=== PATIENT | female | born 1990 | race Two or more races ===

== ENCOUNTER 2024-10-01 04:02 | Observation (INO) | payer BC, MEDICAID, SELFPAY ==
[2024-10-01 04:16] VITALS: BP 145/92; PULSE 74; RESP 20; TEMP 36.6; O2SAT 98; BMI 31.1
[2024-10-01 04:32] LABS: Add Urine Microscopic? NO
[2024-10-01 04:43] LABS: Basophils # 0.1 10^3/uL (0.0-0.1); Basophils % 0.8 %; Eosinophils # 0.7 10^3/uL (0.0-0.8); Eosinophils % 6.4 %; Hematocrit 38.8 % (36-47); Lymphocytes % 17.8 %; Mean Corpuscular Hemoglobin 29.7 pg (27-33); Mean Platelet Volume 8.9 fL (7.4-10.4); Monocytes % 8.6 %; Neutrophils # 7.55 10^3/uL (1.8-7.7); Neutrophils % 65.8 %; Nucleated Red Blood Cells % 0 %; Platelet Count 263 10^3/cmm (157-399); Red Blood Count 4.31 10^6/uL (3.85-5.65); Red Cell Distribution Width 11.9 % (12.1-15.1); White Blood Count 11.46 10^3/uL (3.29-11.43)
[2024-10-01 04:47] LABS: Bilirubin Urine Negative (Negative); Blood Urine Negative (Negative); Glucose Urine UA Negative (Normal); Ketones Urine Negative (Negative); Leukocyte Esterase Urine Negative (Negative); Nitrate Urine Negative (Negative); Protein Urine Negative (Negative); Specific Gravity, Urine 1.015 (1.005-1.030); Urine Appearance Clear (CLEAR); Urine Color Yellow (Yellow); pH Urine 7.5 (5-7)
[2024-10-01 04:48] LABS: HCG Qualitative Urine. Negative (Negative)
--- NOTE | 2024-10-01 05:02 | USR_ITS ---
PROCEDURE INFORMATION: Exam: US Abdomen, Limited; Right Upper Quadrant Exam date and time: 10/01/2024 6:06 AM Age: 34 years old Clinical indication: Abdominal pain; Localized; Right upper quadrant (ruq); Additional info: Ruq pain TECHNIQUE: Imaging protocol: Real time ultrasound of the abdomen with image documentation. Limited exam focused on the right upper quadrant. COMPARISON: No relevant prior studies available. FINDINGS: Liver: Normal. No masses. Gallbladder: Gallstones are noted. No significant gallbladder wall thickening. Biliary ducts: Common bile duct measures 5 mm. Pancreas: Visualized pancreas is unremarkable. Right kidney: Normal. No mass. No hydronephrosis. US/US gall bladder [id number] IMPRESSION: Cholelithiasis without ultrasound evidence of cholecystitis
--- NOTE | 2024-10-01 05:08 | ED_ITS ---
Documented by User: Yakov Benavides DO 10/01/24 21:07 HPI - Abdominal Pain 2 General: Chief Complaint: Abdominal Pain Stated Complaint: ABD Pain Time Seen by Provider: 10/01/24 04:24 History of Present Illness: 34-year-old female with a history of mohini iary colic. She presents with right upper quadrant pain on and off for the last 3 days. She was seen in outside facility, laboratory was taken, no imaging was performed. She was given omeprazole which she has been taking. She has also been taking some Pepcid without any relief. She complains of pain essentially to the right upper quadrant and right flank. She does not believe she is . No fever. She has been nauseated. No vomiting. Related Data Home Medications Medication Instructions Recorded Confirmed ergocalciferol (vitamin D2) 1,250 1,250 mcg PO Q7D 10/01/24 10/01/24 mcg (50,000 unit) capsule levothyroxine 150 mcg tablet 150 mcg PO QAM 10/01/24 10/01/24 omeprazole 20 mg capsule,delayed 20 mg PO DAILY 10/01/24 10/01/24 release venlafaxine 37.5 mg 37.5 mg PO DAILY 10/01/24 10/01/24 capsule,extended release 24 hr Previous Rx's Medication Instructions Recorded sertraline 50 mg tablet 50 mg PO DAILY 30 days #30 tabs 08/17/24 Allergies Allergy/AdvReac Type Severity Reaction Status Date / Time No Known Allergies Allergy Verified 05/29/24 10:32 [facility] ED 2 PFSH: Medical History Psychiatric care Physical Exam 2 Const: GENERAL APPEARANCE: cooperative; not frail appearing HENMT: COMMON NORMALS: normocephalic, atraumatic and Normal external nose present HEAD & SCALP: normocephalic and atraumatic FACE & SINUS: normal facial exam and face symmetric NOSE: Normal external nose present Eye: COMMON NORMALS: Equal, round and reactive pupils present and EOMs intact bilaterally PUPIL: Yes Equal, round and reactive pupils present Neck/C-Spine: GENERAL: Yes trachea midline Chest: CHEST: Yes Symmetrical chest wall rise Resp: COMMON NORMALS: normal respiratory effort, No retractions, No use of accessory muscles and clear to auscultation bilaterally AUSCULTATION: clear to auscultation bilaterally Cardio: COMMON NORMALS: regular rate and regular rhythm RATE: regular rate RHYTHM: regular rhythm GI: COMMON NORMALS: Normal to inspection, nondistended, normoactive bowel sounds present and Soft to palpation PALPATION: Yes Soft to palpation, Yes Tenderness to palpation present (GI) Details: RUQ and Yes Guarding due to palpation present (GI) Extremity: COMMON NORMALS: no pedal edema Neuro: MARCE COMA SCALE: document GCS findings [place] coma scale eye opening: Spontaneous [place] coma scale verbal response: Orientated [place] coma scale motor response: Obey commands [place] coma scale total score: 15 S ENSORY EXAM: Yes extremities (intact) Psych: COMMON NORMALS: speech normal SPEECH: Yes normal speech Skin: COMMON NORMALS: no rashes or lesions noted GENERAL SKIN EXAM: no rashes or lesions noted Course 2 Vital Signs: Vital signs: Vital Signs Temperature 98.3 F 10/01/24 20:00 Pulse Rate 82 10/01/24 20:00 Respiratory Rate 18 10/01/24 20:45 Blood Pressure 115/67 10/01/24 20:00 Pulse Oximetry 93 10/01/24 20:00 Oxygen Delivery Me thod Room Air 10/01/24 20:00 MDM - Abdominal Pain Medical Decision Making White blood cell count is 11.5. Urinalysis is negative. Other laboratories pending. Gallbladder ultrasound is pending. Lab Data 10/01/24 04:35 10/01/24 04:35 Labs/Radiology: Radiology Impressions Gallbladder Ultrasound 10/01/24 05:02 IMPRESSION: Cholelithiasis without ultrasound evidence of cholecystitis Laboratory Results WBC 11.46 10^3/uL (3.29-11.43) H 10/01/24 04:35 RBC 4.31 10^6/uL (3.85-5.65) 10/01/24 04:35 Hgb 12.80 g/dL (11.27-16.99) 10/01/24 04:35 Hct 38.8 % (36-47) 10/01/24 04:35 MCV 90.0 fl (85-98) 10/01/24 04:35 MCH 29.7 pg (27-33) 10/01/24 04:35 MCHC 33.0 g/dL (30-55) 10/01/24 04:35 RDW 11.9 % (12.1-15.1) L 10/01/24 04:35 Plt Count 263 10^3/cmm (157-399) 10/01/24 04:35 MPV 8.9 fL (7.4-10.4) 10/01/24 04:35 Neut % (Auto) 65.8 % 10/01/24 04:35 Lymph % (Auto) 17.8 % 10/01/24 04:35 [place] % (Auto) 8.6 % 10/01/24 04:35 Eos % (Auto) 6.4 % 10/01/24 04:35 Baso % (Auto) 0.8 % 10/01/24 04:35 Neut # (Auto) 7.55 10^3/uL (1.8-7.7) 10/01/24 04:35 Lymph # (Auto) 2.0 10^3/uL (0.8-4.8) 10/01/24 04:35 [place] # (Auto) 1.0 10^3/uL (0.2-0.9) H 10/01/24 04:35 Eos # (Auto) 0.7 10^3/uL (0.0-0.8) 10/01/24 04:35 Baso # (Auto) 0.1 10^3/uL (0.0-0.1) 10/01/24 04:35 Nucleated RBC % (auto) 0 % 10/01/24 04:35 Nucleated RBCs # 0.0 /100WBC 10/01/24 04:35 PT 12.70 SECONDS (12.1-14.9) 10/01/24 04:35 INR 0.93 (0.8-1.2) 10/01/24 04:35 APTT 39.2 SECONDS (23.9-36.7) H 10/01/24 04:35 Sodium 139 mmol/L (136-145) 10/01/24 04:35 Potassium 3.8 mmol/L (3.5-5.1) 10/01/24 04:35 Chloride 106 mmol/L (98-107) 10/01/24 04:35 Carbon Dioxide 24 mmol/L (22-29) 10/01/24 04:35 Anion Gap 12.8 (5-19) 10/01/24 04:35 BUN 9 mg/dL (6-20) 10/01/24 04:35 Creatinine 0.7 mg/dL (0.5-0.9) 10/01/24 04:35 GFR Calculation 95.2 mL/min (90-130) 10/01/24 04:35 Glucose 101 mg/dL (65-115) 10/01/24 04:35 Calculated Osmolality 287 mOsm/kg (285-295) 10/01/24 04:35 Calcium 8.9 mg/dL (8.5-10.5) 10/01/24 04:35 Total Bilirubin 0.2 mg/dL (0.15-1.2) 10/01/24 04:35 AST 76 U/L (0-32) H 10/01/24 04:35 ALT 265 U/L (0-33) H 10/01/24 04:35 Alkaline Phosphatase 122 U/L (35-105) H 10/01/24 04:35 C-Reactive Protein 64.6 mg/L (0.0-4.9) H 10/01/24 04:35 NT-Pro-B Natriuret Pep 40 pg/mL (0-125) 10/01/24 04:35 Total Protein 6.6 g/dL (6.6-8.7) 10/01/24 04:35 Albumin 3.7 g/dL (3.5-5.2) 10/01/24 04:35 Globulin 2.9 g/dL (1.3-4.6) 10/01/24 04:35 Lipase 53 U/L (13-60) 10/01/24 04:35 HCG, Qual Negative (Negative) 10/01/24 04:25 Urine Color Yellow (Yellow) 10/01/24 04:25 Urine Appearance Clear (CLEAR) 10/01/24 04:25 Urine pH 7.5 (5-7) 10/01/24 04:25 Ur Specific [place] 1.015 (1.005-1.030) 10/01/24 04:25 Urine Protein Negative (Negative) 10/01/24 04:25 Urine Glucose (UA) Negative (Normal) 10/01/24 04:25 Urine Ketones Negative (Negative) 10/01/24 04:25 Urine Blood Negative (Negative) 10/01/24 04:25 Urine Nitrate Negative (Negative) 10/01/24 04:25 Urine Bilirubin Negative (Negative) 10/01/24 04:25 Urine Urobilinogen 1.0 mg/dL (Negative) 10/01/24 04:25 Ur Leukocyte Esterase Negative (Negative) 10/01/24 04:25 Amorphous Sediment Not Reportable 10/01/24 04:25 Discharge Plan Discharge Patient Disposition: Admitted As Inpatient Admit Provider: Paul Pryor Clinical Impression: Acute calculous cholecystitis Condition: Stable Sign Out Sign Out Data: Patient Sign Out occurred on 10/01/24 at 06:10. Patient's care was discussed, and care was transferred from Yakov Benavides DO to Karsten Linn DO. Coding Level of Care Code ED Taxicab Driver for Chg Fwd Documented by User: Karsten Linn DO 10/01/24 06:28 HPI - Abdominal Pain 2 General: Chief Complaint: Abdominal Pain Stated Complaint: ABD Pain Time Seen by Provider: 10/01/24 04:24 Related Data Home Medications Medication Instructions Recorded Confirmed ergocalciferol (vitamin D2) 1,250 1,250 mcg PO Q7D 10/01/24 10/01/24 mcg (50,000 unit) capsule levothyroxine 150 mcg tablet 150 mcg PO QAM 10/01/24 10/01/24 omeprazole 20 mg capsule,delayed 20 mg PO DAILY 10/01/24 10/01/24 release venlafaxine 37.5 mg 37.5 mg PO DAILY 10/01/24 10/01/24 capsule,extended release 24 hr Previous Rx's Medication Instructions Recorded sertraline 50 mg tablet 50 mg PO DAILY 30 days #30 tabs 08/17/24 Allergies Allergy/AdvReac Type Severity Reaction Status Date / Time No Known Allergies Allergy Verified 05/29/24 10:32 PFSH ED 2 PFSH: Medical History Psychiatric care Physical Exam 2 Neuro: MARCE COMA SCALE: document GCS findings [place] coma scale total score: 15 Course 2 Vital Signs: Vital signs: Vital Signs Temperature 98.3 F 10/01/24 20:00 Pulse Rate 82 10/01/24 20:00 Respiratory Rate 18 10/01/24 20:45 Blood Pressure 115/67 10/01/24 20:00 Pulse Oximetry 93 10/01/24 20:00 Oxygen Delivery Me thod Room Air 10/01/24 20:00 MDM - Abdominal Pain Medical Decision Making White blood cell count is 11.5. Urinalysis is negative. Other laboratories pending. Gallbladder ultrasound is pending. Care assumed at change of shift. History of ultrasound shows gallbladder stones normal CBD. No hydrops no thickening of the wall patient does have mild leukocytosis and transaminitis. Lipase is normal T. bili normal. Discussed with Dr. Pryor, admit for acute cholecystitis, cholelithiasis. N.p.o. will give her a liter of fluids morphine and Zofran as needed continue Zosyn every 8 h. Lab Data I reviewed the patient's lab results. 10/01/24 04:35 10/01/24 04:35 Labs/Radiology: Radiology Impressions Gallbladder Ultrasound 10/01/24 05:02 IMPRESSION: Cholelithiasis without ultrasound evidence of cholecystitis Laboratory Results WBC 11.46 10^3/uL (3.29-11.43) H 10/01/24 04:35 RBC 4.31 10^6/uL (3.85-5.65) 10/01/24 04:35 Hgb 12.80 g/dL (11.27-16.99) 10/01/24 04:35 Hct 38.8 % (36-47) 10/01/24 04:35 MCV 90.0 fl (85-98) 10/01/24 04:35 MCH 29.7 pg (27-33) 10/01/24 04:35 MCHC 33.0 g/dL (30-55) 10/01/24 04:35 RDW 11.9 % (12.1-15.1) L 10/01/24 04:35 Plt Count 263 10^3/cmm (157-399) 10/01/24 04:35 MPV 8.9 fL (7.4-10.4) 10/01/24 04:35 Neut % (Auto) 65.8 % 10/01/24 04:35 Lymph % (Auto) 17.8 % 10/01/24 04:35 [place] % (Auto) 8.6 % 10/01/24 04:35 Eos % (Auto) 6.4 % 10/01/24 04:35 Baso % (Auto) 0.8 % 10/01/24 04:35 Neut # (Auto) 7.55 10^3/uL (1.8-7.7) 10/01/24 04:35 Lymph # (Auto) 2.0 10^3/uL (0.8-4.8) 10/01/24 04:35 [place] # (Auto) 1.0 10^3/uL (0.2-0.9) H 10/01/24 04:35 Eos # (Auto) 0.7 10^3/uL (0.0-0.8) 10/01/24 04:35 Baso # (Auto) 0.1 10^3/uL (0.0-0.1) 10/01/24 04:35 Nucleated RBC % (auto) 0 % 10/01/24 04:35 Nucleated RBCs # 0.0 /100WBC 10/01/24 04:35 PT 12.70 SECONDS (12.1-14.9) 10/01/24 04:35 INR 0.93 (0.8-1.2) 10/01/24 04:35 APTT 39.2 SECONDS (23.9-36.7) H 10/01/24 04:35 Sodium 139 mmol/L (136-145) 10/01/24 04:35 Potassium 3.8 mmol/L (3.5-5.1) 10/01/24 04:35 Chloride 106 mmol/L (98-107) 10/01/24 04:35 Carbon Dioxide 24 mmol/L (22-29) 10/01/24 04:35 Anion Gap 12.8 (5-19) 10/01/24 04:35 BUN 9 mg/dL (6-20) 10/01/24 04:35 Creatinine 0.7 mg/dL (0.5-0.9) 10/01/24 04:35 GFR Calculation 95.2 mL/min (90-130) 10/01/24 04:35 Glucose 101 mg/dL (65-115) 10/01/24 04:35 Calculated Osmolality 287 mOsm/kg (285-295) 10/01/24 04:35 Calcium 8.9 mg/dL (8.5-10.5) 10/01/24 04:35 Total Bilirubin 0.2 mg/dL (0.15-1.2) 10/01/24 04:35 AST 76 U/L (0-32) H 10/01/24 04:35 ALT 265 U/L (0-33) H 10/01/24 04:35 Alkaline Phosphatase 122 U/L (35-105) H 10/01/24 04:35 C-Reactive Protein 64.6 mg/L (0.0-4.9) H 10/01/24 04:35 NT-Pro-B Natriuret Pep 40 pg/mL (0-125) 10/01/24 04:35 Total Protein 6.6 g/dL (6.6-8.7) 10/01/24 04:35 Albumin 3.7 g/dL (3.5-5.2) 10/01/24 04:35 Globulin 2.9 g/dL (1.3-4.6) 10/01/24 04:35 Lipase 53 U/L (13-60) 10/01/24 04:35 HCG, Qual Negative (Negative) 10/01/24 04:25 Urine Color Yellow (Yellow) 10/01/24 04:25 Urine Appearance Clear (CLEAR) 10/01/24 04:25 Urine pH 7.5 (5-7) 10/01/24 04:25 Ur Specific [place] 1.015 (1.005-1.030) 10/01/24 04:25 Urine Protein Negative (Negative) 10/01/24 04:25 Urine Glucose (UA) Negative (Normal) 10/01/24 04:25 Urine Ketones Negative (Negative) 10/01/24 04:25 Urine Blood Negative (Negative) 10/01/24 04:25 Urine Nitrate Negative (Negative) 10/01/24 04:25 Urine Bilirubin Negative (Negative) 10/01/24 04:25 Urine Urobilinogen 1.0 mg/dL (Negative) 10/01/24 04:25 Ur Leukocyte Esterase Negative (Negative) 10/01/24 04:25 Amorphous Sediment Not Reportable 10/01/24 04:25 All radiology interpretation(s) finalized by discharge Discharge Plan Discharge Patient Disposition: Admitted As Inpatient Admit Provider: Paul Pryor Clinical Impression: Acute calculous cholecystitis Condition: Stable Sign Out Sign Out Data: Patient Sign Out occurred on 10/01/24 at 06:10. Patient's care was discussed, and care was transferred from Yakov Benavides DO to Karsten Linn DO. Coding Level of Care Code ED Taxicab Driver for Sundar Haywood
[2024-10-01 05:14] LABS: Alanine Aminotransferase 265 U/L (0-33); Albumin Level 3.7 g/dL (3.5-5.2); Alkaline Phosphatase 122 U/L (35-105); Anion Gap 12.8 (5-19); Aspartate Amino Transferase 76 U/L (0-32); Blood Urea Nitrogen 9 mg/dL (6-20); C Reactive Protein 64.6 mg/L (0.0-4.9); Calcium 8.9 mg/dL (8.5-10.5); Carbon Dioxide 24 mmol/L (22-29); Chloride 106 mmol/L (98-107); Creatinine Clr Calc Pharmacy 107.8515; Globulin 2.9 g/dL (1.3-4.6); Glomerular Filtration Rate 95.2 mL/min (90-130); Glucose 101 mg/dL (65-115); Lipase 53 U/L (13-60); NT Pro B Type Natriuretic Pept 40 pg/mL (0-125); Osmolality Calculated 287 mOsm/kg (285-295); Potassium 3.8 mmol/L (3.5-5.1); Sodium 139 mmol/L (136-145); Total Bilirubin 0.2 mg/dL (0.15-1.2); Total Protein 6.6 g/dL (6.6-8.7)
[2024-10-01 05:22] LABS: Charge for UA Resulting for Rev
[2024-10-01] MEDS: ondansetron 2 mg/ML SDV 2 mL 4 MG IVP ×2 (05:24→20:45)
[2024-10-01] MEDS: morphine 4 mg/mL SDV 1 mL IVP (05:24)
[2024-10-01] MEDS: ketorolac 30 mg/mL INJ IVP (05:24)
[2024-10-01 05:27] LABS: INR 0.93 (0.8-1.2)
[2024-10-01 05:28] LABS: Partial Thromboplastin Time 39.2 SECONDS (23.9-36.7)
[2024-10-01] MEDS: piperacillin-tazobactam 3.375 GM in sodium chloride 0.9% (plus) 50 ML IV ×3 (06:25→22:03)
[2024-10-01 07:23] VITALS: BP 152/91; PULSE 72; O2SAT 98
[2024-10-01 09:02] VITALS: BMI 30.7
[2024-10-01] MEDS: sodium chloride 0.9% 1,000 ML 999 ML IV (10:02)
--- NOTE | 2024-10-01 11:06 | P.HP_ITS ---
Providers/Chief Complaint 2 Admitting Physician: Paul Pryor DO Chief Complaint: ABD Pain History of Present Illness Kathleen Mendez is a 34 year old female who presented to the hospital with a 3-day history of severe right upper quadrant abdominal pain rating to her back nausea and emesis. Palpation and eating make her pain worse. Nothing seems to make her pain better. Workup in the ER showed leukocytosis elevated LFTs and cholelithiasis with stones in the gallbladder neck. She denies any hematochezia and/or melena Review of Systems 2 General: Reports: 10 or more systems reviewed and unremarkable except in HPI and below Medications/Allergies Home Medications Medication Instructions Recorded Confirmed Last Taken Type sertraline 50 mg tablet 50 mg PO DAILY 30 days #30 tabs 08/17/24 10/01/24 Unknown Rx ergocalciferol (vitamin D2) 1,250 1,250 mcg PO Q7D 10/01/24 10/01/24 Unknown History mcg (50,000 unit) capsule levothyroxine 150 mcg tablet 150 mcg PO QAM 10/01/24 10/01/24 Unknown History omeprazole 20 mg capsule,delayed 20 mg PO DAILY 10/01/24 10/01/24 Unknown History release venlafaxine 37.5 mg 37.5 mg PO DAILY 10/01/24 10/01/24 Unknown History capsule,extended release 24 hr Allergies Allergy/AdvReac Type Severity Reaction Status Date / Time No Known Allergies Allergy Verified 05/29/24 10:32 PFSH Acute 2 PFSH: Medical History Psychiatric care Vitals/I&O/Wt Last Vital Signs Temp 97.9 F 10/01/24 04:16 Pulse 72 10/01/24 07:23 Resp 20 H 10/01/24 04:16 BP 152/91 10/01/24 07:23 Pulse Ox 98 10/01/24 07:23 O2 Del Method Room Air 10/01/24 04:16 09/30/24 10/01/24 10/01/24 22:59 06:59 14:59 Intake Total 50 / 50 Balance 50 / 50 Weight last 48 hrs Weight 167 lb 14.4 oz Weight 170 lb Physical Exam 2 Narrative: General : Patient is well developed , no acute distress, oriented x3 Head : Normal cephalic, a-traumatic. Ears : Pinnae and external canal are normal. Hearing is normal. Eyes : PERRLA, Sclera and injection are normal. No conjunctival discharge. Nose : Mucous membranes are without erythema. Throat : buccal mucosa is normal, gums are without significant recession or hypertrophy. Lungs : Equal chest rise bilaterally, no use of accessory muscles, trachea is midline. Cor : Rate and rhythm are normal. Abdomen : Soft, ND, tender right upper quadrant, negative Pina's, no g/r/m Extremities : No edema, no cyanosis or clubbing, dorsalis pedis pulses are present bilaterally, non-tender to palpation of calves. Upper extremities are normal bilaterally. Back : non-tender to palpation, no CVA tenderness. Neuro : CN II - XII intact, Upper and lower extremities have equal and full strength Data 10/01/24 04:35 10/01/24 04:35 A&P Assessment and plan (1) Acute calculous cholecystitis: Plan Low-fat diet N.p.o. after midnight Pain control IV antibiotics Tomorrow for laparoscopic cholecystectomy The risks and benefits of the procedure, including but not limited to, bleeding, infection, scar, numbness, pain, damage to surrounding structures, damage to common bile duct requiring additional surgery, conversion to an open procedure, were explained to the patient. He is understanding of the risks and wishes to proceed. Attestations 2 Medical Necessity Statement*: Patient requires 1 more night in the hospital for IV antibiotics and laparoscopic cholecystectomy in the morning Coding Level of Care Code 42203 Diagnoses Acute calculous cholecystitis K80.00
[2024-10-01] MEDS: HYDROcodone-acetaminophen 7.5-325 mg Tablet 1 TAB PO ×2 (11:44→16:25)
[2024-10-01 12:00] VITALS: BP 115/75; PULSE 88; RESP 19; TEMP 36.9; O2SAT 97
[2024-10-01 16:00] VITALS: BP 112/70; PULSE 81; RESP 16; TEMP 37; O2SAT 96
[2024-10-01 20:00] VITALS: BP 115/67; PULSE 82; RESP 16; TEMP 36.8; O2SAT 93
[2024-10-01 20:45] VITALS: RESP 18
[2024-10-01] MEDS: HYDROmorphone 1 mg/mL INJ 1 mL 0.5 MG IVP (20:45)
[2024-10-01 20:57] LABS: Glucose Point of Care 125 mg/dL (70-110)
[2024-10-02] VITALS (19 sets, daily range): BP systolic 99–123; BP diastolic 57–85; PULSE 64–83; RESP 15–22; TEMP 36.4–37.5; O2SAT 90–97
[2024-10-02] MEDS: HYDROcodone-acetaminophen 7.5-325 mg Tablet 1 TAB PO ×3 (02:14→15:50)
[2024-10-02] MEDS: HYDROmorphone 1 mg/mL INJ 1 mL 0.5 MG IVP (03:09)
[2024-10-02] MEDS: ondansetron 2 mg/ML SDV 2 mL 4 MG IVP (03:14)
[2024-10-02 03:37] LABS: Basophils # 0.1 10^3/uL (0.0-0.1); Basophils % 0.5 %; Eosinophils # 0.2 10^3/uL (0.0-0.8); Eosinophils % 2.2 %; Hematocrit 36.1 % (36-47); Lymphocytes # 1.4 10^3/uL (0.8-4.8); Lymphocytes % 13.5 %; Mean Corpuscular Hemoglobin 29.8 pg (27-33); Mean Corpuscular Volume 90.3 fl (85-98); Mean Platelet Volume 9.1 fL (7.4-10.4); Monocytes # 0.7 10^3/uL (0.2-0.9); Monocytes % 6.8 %; Neutrophils % 76.3 %; Nucleated Red Blood Cells % 0 %; Platelet Count 253 10^3/cmm (157-399); Red Cell Distribution Width 11.9 % (12.1-15.1); White Blood Count 10.21 10^3/uL (3.29-11.43)
[2024-10-02 04:05] LABS: Alanine Aminotransferase 479 U/L (0-33); Albumin Level 3.4 g/dL (3.5-5.2); Alkaline Phosphatase 263 U/L (35-105); Anion Gap 13.1 (5-19); Aspartate Amino Transferase 234 U/L (0-32); Blood Urea Nitrogen 10 mg/dL (6-20); Calcium 8.9 mg/dL (8.5-10.5); Carbon Dioxide 24 mmol/L (22-29); Chloride 100 mmol/L (98-107); Creatinine Clr Calc Pharmacy 150.0471; Glomerular Filtration Rate 140.4 mL/min (90-130); Glucose 135 mg/dL (65-115); Osmolality Calculated 277 mOsm/kg (285-295); Potassium 4.1 mmol/L (3.5-5.1); Sodium 133 mmol/L (136-145); Total Protein 6.4 g/dL (6.6-8.7)
[2024-10-02] MEDS: piperacillin-tazobactam 3.375 GM in sodium chloride 0.9% (plus) 50 ML IV (05:33)
--- NOTE | 2024-10-02 10:03 | PC.CHAP ---
Pastoral Care Encounter/Spiritual Assessment Type of Contact [] Declined jig and fixture maker visit [] Patient/Family/Request visit [] Outpatient visit [] Follow-up visit [] Physician referral [] Code/Alert [x] Routine visit [] Staff referral [] Actively dying [x] Patient sleeping [] Family support [] [] Out of room [] Palliative care [] [] Receiving care in room [] Pre-surgical visit [] Trauma [] Long length of stay [] ICU visit [] Other: Relational/Emotional Strength [] Patient feels connected with others/family/visitors/staff [] Distress [] Loneliness/isolation [] Abandonment Spirituality of Patient [] Person of Janice [] Attends Scientologist of their Janice [] Believes in Prayer [] Reads Bible or Adventism materials [] There are Spiritual issues to be addressed Artificial Flowers Starcher Interventions [] Prayer [] Active listening [] Non-anxious presence [] Spiritual/emotional support [] Crisis/trauma care [] Spiritual counseling [] Bereavement support [] Provided bereavement packet [] Provided Bible/devotional materials [] Provided toy/stuffed animal, coloring book to patient or family member [] Provided Communion [] Anointing/[place] [] Salvation [] Completed spiritual assessment [] Other: Impact on Illness or Injury [] Angry [] Fearful [] Anxious [] Often cries [] Exhaustion [] Unable to work [] Unable to attend orthodox [] Unable to walk/stand [] Unable to read [] Unable to drive [] Unable to eat/drink [] Unable to sleep [] Unable to be with family [] Patient intubated [] Other: Summary Time spent with patient
[2024-10-02] MEDS: sodium chloride 0.9% 1,000 ML 30 ML IV (11:42)
--- NOTE | 2024-10-02 12:06 | P.ANESASSM_ITS ---
Pre-Anesthetic Assessment Height/Weight: Height 5 ft 2 in Weight 168 lb 4.8 oz Temp Pulse Resp BP Pulse Ox O2 Del Method 97.6 F 75 16 123/85 97 Room Air 10/02/24 11:16 10/02/24 11:16 10/02/24 11:16 10/02/24 11:16 10/02/24 11:16 10/02/24 11:16 Preop Diagnosis: Acute cholecystitis Operation Date: 10/02/24 12:00 Proposed Procedures p Laparoscopic Cholecystectomy(Bilateral) - Paul Pryor, DO Was Beta Zoie taken within 24 hours: N/A Was Clonidine taken within 24 hours: N/A Last intake: Intake Last Liquid Date 10/01/24 Last Liquid Time 23:30 Last Solid Date 10/01/24 Last Solid Time 18:00 Social No alcohol and No tobacco Exam alert, oriented x 3, clear to auscultation bilaterally and regular rate & rhythm Airway Submandibular: within normal limits Cervical ROM: within normal limits Mallampati: Class II Dentition: full Anesthetic Plan ASA status: 2 Anesthesia: General Other: No prior issues with anesthesia NPO since yesterday History of GERD on omeprazole Hypothyroidism on Synthroid Denies any cardiac or pulmonary issues METs greater than 4 Labs reviewed and acceptable for procedure. NA 133 Transaminitis noted, most likely secondary to acute cholecystitis Plan for GETA Medications/Allergies Home Medications Medication Instructions Recorded Confirmed Last Taken Type sertraline 50 mg tablet 50 mg PO DAILY 30 days #30 tabs 08/17/24 10/01/24 Unknown Rx ergocalciferol (vitamin D2) 1,250 1,250 mcg PO Q7D 10/01/24 10/01/24 Unknown History mcg (50,000 unit) capsule levothyroxine 150 mcg tablet 150 mcg PO QAM 10/01/24 10/01/24 Unknown History omeprazole 20 mg capsule,delayed 20 mg PO DAILY 10/01/24 10/01/24 Unknown History release venlafaxine 37.5 mg 37.5 mg PO DAILY 10/01/24 10/01/24 Unknown History capsule,extended release 24 hr Allergies Allergy/AdvReac Type Severity Reaction Status Date / Time No Known Allergies Allergy Verified 05/29/24 10:32 Current Medications Generic Name Dose Route Start Last Admin Trade Name Freq PRN Reason Stop Dose Admin Hydrocodone Bitart/Acetaminophen 1 tab 10/01/24 11:03 10/02/24 09:45 Hydrocodone-Acetaminophen 7.5-325 Mg Tablet PO 1 tab Q4H PRN Administration MODERATE PAIN Hydromorphone HCl 0.5 mg 10/01/24 11:03 10/02/24 03:09 Hydromorphone 1 Mg/Ml Inj 1 Ml IVP 0.5 mg Q3H PRN Administration SEVERE PAIN Piperacillin Sod/Tazobactam 50 mls @ 12.5 mls/hr 10/01/24 13:30 10/02/24 09:50 Sod 3.375 gm/ Sodium Chloride IV Infused Q8H LILIA Infusion Protocol Sodium Chloride 1,000 mls @ 30 mls/hr 10/02/24 11:30 10/02/24 11:42 Sodium Chloride 0.9% IV 10/03/24 11:29 30 mls/hr .Q24H LILIA Administration Ondansetron HCl 4 mg 10/01/24 08:39 10/02/24 03:14 Ondansetron 2 Mg/Ml Sdv 2 Ml IVP 4 mg Q6H PRN Administration NAUSEA AND VOMITING PFSH Anesthesia Medical History Psychiatric care Data Anesthesia 10/02/24 02:43 10/02/24 02:43 Short CBC 10/01/24 10/02/24 Range/Units 04:35 02:43 WBC 11.46 H 10.21 (3.29-11.43) 10^3/uL Hgb 12.80 11.90 (11.27-16.99) g/dL Hct 38.8 36.1 (36-47) % MCV 90.0 90.3 (85-98) fl Plt Count 263 253 (157-399) 10^3/cmm Neut % (Auto) 65.8 76.3 % Neut # (Auto) 7.55 7.80 H (1.8-7.7) 10^3/uL BMP 10/01/24 10/02/24 04:35 02:43 Sodium 139 133 L Potassium 3.8 4.1 Chloride 106 100 Carbon Dioxide 24 24 BUN 9 10 Creatinine 0.7 0.5 Glucose 101 135 H Calcium 8.9 8.9 Cardiac Enzymes 10/01/24 Range/Units 04:35 NT-Pro-B Natriuret Pep 40 (0-125) pg/mL Liver Function 10/01/24 10/02/24 Range/Units 04:35 02:43 Total Bilirubin 0.2 2.0 H (0.15-1.2) mg/dL AST 76 H 234 H (0-32) U/L ALT 265 H 479 H (0-33) U/L Alkaline Phosphatase 122 H 263 H (35-105) U/L Albumin 3.7 3.4 L (3.5-5.2) g/dL Urine 10/01/24 Range/Units 04:25 Urine Color Yellow (Yellow) Urine Appearance Clear (CLEAR) Urine pH 7.5 (5-7) Ur Specific [place] 1.015 (1.005-1.030) Urine Protein Negative (Negative) Urine Glucose (UA) Negative (Normal) Urine Ketones Negative (Negative) Urine Nitrate Negative (Negative) Urine Bilirubin Negative (Negative) Ur Leukocyte Esterase Negative (Negative) Coags 10/01/24 04:35 PT 12.70 INR 0.93 APTT 39.2 H C-Reactive Protein 64.6 H Cardiac Studies: 2 No Data to Display
--- NOTE | 2024-10-02 12:13 | PM.PN ---
Vitals/I&O/Wt Last Vital Signs Temp 97.6 F 10/02/24 11:16 Pulse 75 10/02/24 11:16 Resp 16 10/02/24 11:16 BP 123/85 10/02/24 11:16 Pulse Ox 97 10/02/24 11:16 O2 Del Method Room Air 10/02/24 11:16 10/01/24 10/02/24 10/02/24 22:59 06:59 14:59 Intake Total 1050 / 1340 50 / 1390 50 / 50 Balance 1050 / 1340 50 / 1390 50 / 50 Weight last 48 hrs Weight 168 lb 4.8 oz Weight 167 lb 14.4 oz Weight 170 lb Data 10/02/24 02:43 10/02/24 02:43 A&P Assessment and plan (1) Acute calculous cholecystitis: Plan laparoscopic cholecystectomy The risks and benefits of the procedure, including but not limited to, bleeding, infection, scar, numbness, pain, damage to surrounding structures, damage to common bile duct requiring additional surgery, conversion to an open procedure, were explained to the patient. He is understanding of the risks and wishes to proceed. Attestations Medical Necessity Statement*: discharge after procedure Coding Level of Care Code Acute Code for [facility] Fwd Diagnoses Acute calculous cholecystitis K80.00
[2024-10-02] MEDS: lidocaine-epi 2% PF 1:200,000 20 mL SDV XX (12:36)
--- NOTE | 2024-10-02 13:11 | P.OP_ITS ---
Operative Report Date of procedure: October 02, 2024 Surgeon: Paul Pryor DO Brief History: This very pleasant 34-year-old female presented to hospital with abdominal pain. She was diagnosed with acute calculous cholecystitis. Cholecystectomy was indicated. The risks and benefits were explained and documented. Procedure: Preoperative diagnosis: Acute calculous cholecystitis Postoperative diagnosis: Same Procedure performed: Laparoscopic cholecystectomy Surgeon: Dr. Paul Pryor DO Estimated blood loss: 5 mL Specimens: Gallbladder to pathology Complications: None apparent Description of procedure: Patient was wheeled into the operative room and placed on the OR table in a supine position. Abdomen was inspected prepped and draped in usual sterile fashion. Time-out was performed and all present were in agreement. A 15 blade scalp was used to make a stab incision in the left upper quadrant and intra- abdominal insufflation was achieved using a Veress needle. After localizing the tissue incisions were made and a 5 millimeter trocar was placed into the umbilicus as well as 2 in the right upper quadrant. A 12 millimeter trocar was placed in the epigastrium. The gallbladder was significantly inflamed with omental adhesions. Gallbladder was grasped and elevated. The triangle of Calot was carefully dissected using blunt dissection and electrocautery until the triangle of [place]ot clearly identified. The cystic duct was clipped proximally and double clipped distally. The duct was then ligated proximally. The cystic artery was doubly clipped and ligated. The gallbladder was then removed from the liver bed using electrocautery. The gallbladder was removed from the abdomen using an Endo-Catch bag through the epigastric incision. The liver bed was inspected and no bleeding was seen. The abdomen was irrigated and suctioned. All ports removed. Skin was washed and dried. Incisions were closed with 4-0 Monocryl in a subcuticular interrupted fashion. Skin glue was applied. Patient tolerated the procedure well.
[2024-10-02] MEDS: fentaNYL 50 mcg/mL INJ 2mL IVP (13:34)
--- NOTE | 2024-10-02 13:58 | ANE.PACU2 ---
Inpatient post-anesthesia follow up: Airway intact: Yes Vital signs: Temperature 98.0 F Pulse Rate 83 Respiratory Rate 16 Blood Pressure 112/64 Pulse Oximetry 92 Oxygen Delivery Me thod Room Air Oxygen Flow Rate 2 Fraction of Inspir ed Oxygen Hydration adequate: Yes Nausea and vomiting: No Pain level: 1 Mental status: Baseline
--- NOTE | 2024-10-02 14:58 | P.DS_ITS ---
Discharge Providers Date of Admission: 10/01/24 06:23 Date of Discharge: October 02, 2024 Attending Provider at Admission: Paul Pryor DO Attending Provider at Discharge: Paul Pryor DO Diagnoses at Discharge Discharge Diagnosis (1) Acute calculous cholecystitis: Status: Acute Reason for Visit Reason for Visit: ABD Pain Hospital Course Hospital Course This is a very pleasant 34-year-old female came to the hospital with abdominal pain. She was diagnosed with acute calculus cholecystitis. She underwent laparoscopic cholecystectomy and was discharged home in good condition Physical Exam Narrative: General : Patient is well developed , no acute distress, oriented x3 Head : Normal cephalic, a-traumatic. Ears : Pinnae and external canal are normal. Hearing is normal. Eyes : PERRLA, Sclera and injection are normal. No conjunctival discharge. Nose : Mucous membranes are without erythema. Throat : buccal mucosa is normal, gums are without significant recession or hypertrophy. Lungs : Equal chest rise bilaterally, no use of accessory muscles, trachea is midline. Cor : Rate and rhythm are normal. Abdomen : Soft, ND, appropriately tender, no g/r/m Extremities : No edema, no cyanosis or clubbing, dorsalis pedis pulses are present bilaterally, non-tender to palpation of calves. Upper extremities are normal bilaterally. Back : non-tender to palpation, no CVA tenderness. Neuro : CN II - XII intact, Upper and lower extremities have equal and full strength Discharge Data Studies Completed and Pending Completed Studies During Hospitalization Category Date Time Status US gall bladder 71030 Stat Ultrasound 10/01/24 05:02 Completed Pending at discharge Category Date Time Status Pathology: Surgical [PTH] Routine Pth 10/02/24 12:54 Received Radiology Impressions Gallbladder Ultrasound 10/01/24 05:02 IMPRESSION: Cholelithiasis without ultrasound evidence of cholecystitis Laboratory Results WBC 10.21 10^3/uL (3.29-11.43) 10/02/24 02:43 RBC 4.00 10^6/uL (3.85-5.65) 10/02/24 02:43 Hgb 11.90 g/dL (11.27-16.99) 10/02/24 02:43 Hct 36.1 % (36-47) 10/02/24 02:43 MCV 90.3 fl (85-98) 10/02/24 02:43 MCH 29.8 pg (27-33) 10/02/24 02:43 MCHC 33.0 g/dL (30-55) 10/02/24 02:43 RDW 11.9 % (12.1-15.1) L 10/02/24 02:43 Plt Count 253 10^3/cmm (157-399) 10/02/24 02:43 MPV 9.1 fL (7.4-10.4) 10/02/24 02:43 Neut % (Auto) 76.3 % 10/02/24 02:43 Lymph % (Auto) 13.5 % 10/02/24 02:43 [place] % (Auto) 6.8 % 10/02/24 02:43 Eos % (Auto) 2.2 % 10/02/24 02:43 Baso % (Auto) 0.5 % 10/02/24 02:43 Neut # (Auto) 7.80 10^3/uL (1.8-7.7) H 10/02/24 02:43 Lymph # (Auto) 1.4 10^3/uL (0.8-4.8) 10/02/24 02:43 [place] # (Auto) 0.7 10^3/uL (0.2-0.9) 10/02/24 02:43 Eos # (Auto) 0.2 10^3/uL (0.0-0.8) 10/02/24 02:43 Baso # (Auto) 0.1 10^3/uL (0.0-0.1) 10/02/24 02:43 Nucleated RBC % (auto) 0 % 10/02/24 02:43 Nucleated RBCs # 0.0 /100WBC 10/02/24 02:43 PT 12.70 SECONDS (12.1-14.9) 10/01/24 04:35 INR 0.93 (0.8-1.2) 10/01/24 04:35 APTT 39.2 SECONDS (23.9-36.7) H 10/01/24 04:35 Sodium 133 mmol/L (136-145) L 10/02/24 02:43 Potassium 4.1 mmol/L (3.5-5.1) 10/02/24 02:43 Chloride 100 mmol/L (98-107) 10/02/24 02:43 Carbon Dioxide 24 mmol/L (22-29) 10/02/24 02:43 Anion Gap 13.1 (5-19) 10/02/24 02:43 BUN 10 mg/dL (6-20) 10/02/24 02:43 Creatinine 0.5 mg/dL (0.5-0.9) 10/02/24 02:43 GFR Calculation 140.4 mL/min (90-130) H 10/02/24 02:43 Glucose 135 mg/dL (65-115) H 10/02/24 02:43 POC Glucose 125 mg/dL (70-110) H 10/01/24 20:54 Calculated Osmolality 277 mOsm/kg (285-295) L 10/02/24 02:43 Calcium 8.9 mg/dL (8.5-10.5) 10/02/24 02:43 Total Bilirubin 2.0 mg/dL (0.15-1.2) H 10/02/24 02:43 AST 234 U/L (0-32) H 10/02/24 02:43 ALT 479 U/L (0-33) H 10/02/24 02:43 Alkaline Phosphatase 263 U/L (35-105) H 10/02/24 02:43 C-Reactive Protein 64.6 mg/L (0.0-4.9) H 10/01/24 04:35 NT-Pro-B Natriuret Pep 40 pg/mL (0-125) 10/01/24 04:35 Total Protein 6.4 g/dL (6.6-8.7) L 10/02/24 02:43 Albumin 3.4 g/dL (3.5-5.2) L 10/02/24 02:43 Globulin 3.0 g/dL (1.3-4.6) 10/02/24 02:43 Lipase 53 U/L (13-60) 10/01/24 04:35 HCG, Qual Negative (Negative) 10/01/24 04:25 Urine Color Yellow (Yellow) 10/01/24 04:25 Urine Appearance Clear (CLEAR) 10/01/24 04:25 Urine pH 7.5 (5-7) 10/01/24 04:25 Ur Specific [place] 1.015 (1.005-1.030) 10/01/24 04:25 Urine Protein Negative (Negative) 10/01/24 04:25 Urine Glucose (UA) Negative (Normal) 10/01/24 04:25 Urine Ketones Negative (Negative) 10/01/24 04:25 Urine Blood Negative (Negative) 10/01/24 04:25 Urine Nitrate Negative (Negative) 10/01/24 04:25 Urine Bilirubin Negative (Negative) 10/01/24 04:25 Urine Urobilinogen 1.0 mg/dL (Negative) 10/01/24 04:25 Ur Leukocyte Esterase Negative (Negative) 10/01/24 04:25 Amorphous Sediment Not Reportable 10/01/24 04:25 Procedures Performed Laparoscopic cholecystectomy Vitals Last Vital Signs Temp 98.1 F 10/02/24 13:53 Pulse 71 10/02/24 13:53 Resp 18 10/02/24 13:53 BP 112/69 10/02/24 13:53 Pulse Ox 94 10/02/24 13:53 O2 Del Method Room Air 10/02/24 13:53 O2 Flow Rate 2 10/02/24 13:43 Discharge Plan Discharge Patient Disposition: Home Condition: Stable Prescriptions: New amoxicillin-pot clavulanate 875-125 mg tablet 1 tab PO BID Qty: 14 0RF docusate sodium [Colace] 100 mg capsule 100 mg PO BID Qty: 14 0RF polyethylene glycol 3350 [Miralax] 17 gram/dose powder 17 g PO DAILY Qty: 119 0RF oxycodone-acetaminophen 7.5-325 mg tablet 1 tab PO Q6H PRN (Reason: pain) Qty: 20 0RF Continued sertraline 50 mg tablet 50 mg PO DAILY 30 Days Qty: 30 3RF venlafaxine 37.5 mg capsule,extended release 24hr 37.5 mg PO DAILY levothyroxine 150 mcg tablet 150 mcg PO QAM omeprazole 20 mg capsule,delayed release(DR/EC) 20 mg PO DAILY ergocalciferol (vitamin D2) 1,250 mcg (50,000 unit) capsule 1,250 mcg PO Q7D Discharge Orders: Discharge Order (Routine); Ordered 10/02/24 Ordered By: Paul Pryor Referrals: Paul Pryor DO [Physician] - 2 weeks Discharge Diet: Advance as tolerated Discharge Activity: Resume usual activity Patient Instructions: Acute Wound Care (DC), Opioid Safety, Post Anesthesia Care Activity Restrictions/Additional Instructions: Do not soak incisions underwater for 2 weeks. Shower regularly. Discharge Attestations Time Spent in Discharge Care*: less than 30 min Quality Metrics Clinical Quality Measures [ No reported AMI, CVA or VTE this stay] Coding Level of Care Code Acute Code for Chg Fwd Diagnoses Acute calculous cholecystitis K80.00
== END 2024-10-02 17:25 | disposition home or self-care (01) ==
LOC: ER 06:28 → MEDSURG 08:16
PROVIDERS: Emergency Medicine; Admitting Provider Surgery; Emergency Provider Family Medicine; Visit Provider Surgery
PROC: 0FT44ZZ Resection of Gallbladder, Percutaneous Endoscopic Approach (ICD-10-PCS; CPT 47562; principal; 2024-10-02 11:50)
DX: K80.10 Calculus of gallbladder with chronic cholecystitis without obstruction (principal); E78.89 Other lipoprotein metabolism disorders; K21.9 Gastro-esophageal reflux disease without esophagitis; E03.9 Hypothyroidism, unspecified
CPT/HCPCS: 47562; 36415; 36416; 76705; 80053; 81003; 81025; 82962; 83690; 83880; 85025; 85610; 85730; 86140; 88304; 96365; 96375; 99285; G0378; J1100; J1171; J1885; J2250; J2270; J2405; J2543; J2704; J2710; J3010; J3490; J7030